=== PATIENT | female | born 1965 | race Caucasian/White ===

== ENCOUNTER 2020-11-19 14:39 | Outpatient (CLI) | payer OTHER, SELFPAY ==
--- NOTE | 2020-11-19 14:58 | ECG_ITS ---
Measurements Intervals Meredith Rate: 62 P: 74 HI: 143 QRS: 78 QRSD: 73 T: 62 QT: 430 QTc: 437 Interpretive Statements SINUS RHYTHM NORMAL ECG Electronically Signed On 11-19-2020 15:59:27 CDT by Oskar Crespo D.O.
== END 2020-11-19 14:40 | disposition home or self-care (01) ==
LOC: ANHCARD 14:44
PROVIDERS: PCP Family Medicine Adolescent Medicine; Visit Provider Physician Assistant
DX: R07.9 Chest pain, unspecified (principal)
CPT/HCPCS: 93005

== ENCOUNTER → 2021-08-17 11:10 | Outpatient (CLI) | payer OTHER, SELFPAY ==
--- NOTE | ~2021-08-17 | MR_ITS ---
EXAMINATION: MR brain/brain stem wo/w con DATE: 08/17/2021 12:27 INDICATION: Migraine with aura, not intractable, without status migrainosus. TECHNIQUE: Magnetic resonance imaging (MRI) of the brain and brainstem was performed without and with 13 mL MultiHance intravenous contrast. Sequences included sagittal and axial T1-weighted FSE, axial diffusion-weighted FS EPI, axial T2*-weighted GRE, axial T2-weighted FLAIR Propeller, and axial T2-we ighted Propeller. Postcontrast sequences included axial and coronal T1-weighted FSE. Apparent diffusi on coefficient (ADC) maps were created. COMPARISON: None. FINDINGS: There is no intracranial hemorrhage, acute infarction, or abnormal intracranial mass lesion . The ventricles are normal in size. The paranasal sinuses are clear. There are likely changes of ocu lar lens replacement surgeries. The mastoid air cells are normal. IMPRESSION: 1. Normal brain. Reviewed, dictated and finalized at location A. IMPRESSION: 1. Normal brain.
--- NOTE | ~2021-08-17 | US_ITS ---
EXAMINATION: US pelvic complete w TV DATE: 08/17/2021 11:49 INDICATION: D25.9 - Leiomyoma of uterus, unspecified TECHNIQUE: Multiple transabdominal and endovaginal sonographic images of the pelvis were obtained. COMPARISON: None. FINDINGS: Uterus: 6.1 x 2.2 x 3.9 cm. Endometrial complex measures 0.6 cm. Multiple fibroids appear to be prese nt in the transabdominal images, ranging in size between 3.2 and 5.3 cm. Only a single myometrial fib roid detected in the transvaginal images, measuring up to 8.6 cm. Is possible that portions of this s alec fibroid appeared separate in the transabdominal views. Right Ovary: Not visualized. No adnexal mass. Left Ovary: Not visualized. No adnexal mass. There is no free fluid in the pelvis. IMPRESSION: 1. 8.6 cm myometrial fibroid. 2. Nonvisualized ovaries. Reviewed, dictated and finalized at location K.
[2021-08-17 12:10] LABS: Estimated Glomerular Filt Rate 58
== END ==
PROVIDERS: PCP Family Medicine Adolescent Medicine; Visit Provider Physician Assistant
DX: G43.109 Migraine with aura, not intractable, without status migrainosus (principal); D25.9 Leiomyoma of uterus, unspecified
CPT/HCPCS: 70553; 76830; 76856; A9577

== ENCOUNTER 2023-02-20 08:26 | Day surgery (SDC) | payer OTHER, SELFPAY ==
[2023-01-24 15:02] VITALS: BMI 30.3
--- NOTE | 2023-02-17 14:43 | PM.HPGS ---
History of Present Illness History of Present Illness Consent: Risks, benefits, and alternatives have been discussed and questions answered. Patient agrees to proceed with procedure. Chief complaint: Neoplasm Screening Narrative: Desiree Grimm is a 57 year old female Referred for colon cancer screening. Colonoscopy was about 10 years ago. Review of Systems Review of Systems: All systems reviewed & are unremarkable except as noted in HPI and below PMFSH Family History Family History Mother Hypertension Father Diabetes mellitus Hypertension Cancer of kidney Ulcerative colitis Multiple myeloma Social History Social History Smoking status: Never smoker Second hand tobacco smoke exposure: No Alcohol intake: current Alcohol use details: Socially Substance use: never Substance use type: does not use Lack of Transportation: No Lack of Food: Never True Current Housing: I Have Housing Concerned About Future Housing: No Difficulty Paying Gas/Electric Bills: No Difficulty Paying for Meds: No Currently Unemployed: No Education: Associate Degree Difficulty w/ Childcare or Family Care: No Living arrangements: with family Occupation/Education: occupation Gender identity (if verbalized by the patient): Female Sexual Orientation (if Verbalized by the Patient): Straight or Heterosexual Spiritual care concerns: No Agree to blood products: Yes Meds Home Medications and Allergies Home Medications Medication Instructions Recorded Confirmed Type topiramate 25 mg tablet 25 mg PO DAILY #90 tabs 12/16/22 02/20/23 Rx amlodipine 5 mg tablet 5 mg PO DAILY 02/01/23 02/20/23 History metoprolol succinate 25 mg 25 mg PO DAILY 02/01/23 02/20/23 History tablet,extended release 24 hr Allergies Allergy/AdvReac Type Severity Reaction Status Date / Time Penicillins AdvReac Unknown unknown Verified 02/20/23 11:16 Exam Resp: Auscultation: clear to auscultation bilaterally Cardio: Rate: regular rate Rhythm: regular rhythm GI: GI Palp: Yes Soft to palpation and No Tenderness to palpation present (GI) Assessment and Plan Assessment and plan (1) Colon cancer screening: Code(s): Z12.11 - Encounter for screening for malignant neoplasm of colon Status: Acute Assessment and Plan: Colonoscopy with possible biopsy or polypectomy or cautery or injection of substances.
[2023-02-20 11:18] VITALS: BP 107/70; PULSE 72; RESP 16; TEMP 37.3; O2SAT 99
[2023-02-20] MEDS: LACTATED RINGERS 1,000 ML 150 ML IV CONT (11:28)
--- NOTE | 2023-02-20 11:46 | P.PNAN_ITS ---
Anes - Initial Pre Proc Eval Procedure: Operation Date: 02/20/23 12:30 Proposed Procedures p Screening Colonoscopy - Yg Lam MD Date/Time: 02/20/23 11:46 Surgeon: Yg Lam MD Pre Op Diagnosis: Neoplasm Screening Patient Data Age: 57 Gender: F Height: 1.57 m Weight: 77.4 kg Last Vital Signs Temp 37.3 C 02/20/23 11:18 Pulse 72 02/20/23 11:18 Resp 16 02/20/23 11:18 BP 107/70 02/20/23 11:18 Pulse Ox 99 02/20/23 11:18 O2 Del Method Room Air 02/20/23 11:18 Allergies Allergy/AdvReac Type Severity Reaction Status Date / Time Penicillins AdvReac Unknown unknown Verified 02/20/23 11:16 Home Medications Medication Instructions Recorded Confirmed Type topiramate 25 mg tablet 25 mg PO DAILY #90 tabs 12/16/22 02/20/23 Rx amlodipine 5 mg tablet 5 mg PO DAILY 02/01/23 02/20/23 History metoprolol succinate 25 mg 25 mg PO DAILY 02/01/23 02/20/23 History tablet,extended release 24 hr Patient hx anesthesia problems: none Family hx anesthesia problems: none Results Review: All pre-operative results and documents have been reviewed as part of the pre- operative evaluation. [facility] Family History Family History Mother Hypertension Father Diabetes mellitus Hypertension Cancer of kidney Ulcerative colitis Multiple myeloma Social History Social History Smoking status: Never smoker Second hand tobacco smoke exposure: No Alcohol intake: current Alcohol use details: Socially Substance use: never Substance use type: does not use Lack of Transportation: No Lack of Food: Never True Current Housing: I Have Housing Concerned About Future Housing: No Difficulty Paying Gas/Electric Bills: No Difficulty Paying for Meds: No Currently Unemployed: No Education: Associate Degree Difficulty w/ Childcare or Family Care: No Living arrangements: with family Occupation/Education: occupation Gender identity (if verbalized by the patient): Female Sexual Orientation (if Verbalized by the Patient): Straight or Heterosexual Spiritual care concerns: No Agree to blood products: Yes Anes - Eval Final PreProcedure Day of Procedure 02/20/23 11:46 Patient weight: obese Heart: regular rate and rhythm Lungs: clear to auscultation Airway: Mallampati scale class III Neurological: alert and oriented Last oral intake: >/= 8 hours ASA classification: III Emergent: no Anesthetic plan: proceed Anesthesia type and monitoring: general GIVS and standard monitoring Results Review: All pre-operative results and documents have been reviewed as part of the pre- operative evaluation. Informed Consent: The patient's anesthetic plan and its attendant risks and benefits were discussed with the patient/family/POA. Questions were solicited and answers provided to the satisfaction of the patient/family/POA.
[2023-02-20 12:35] VITALS: BP 102/61; PULSE 71; RESP 16; O2SAT 99
--- NOTE | 2023-02-20 12:41 | WPDANESPN ---
Anes - Prog Note Post-Op Date/Time: 02/20/23 12:41 Cardiovascular status: normal Respiratory status: normal Airway patency: baseline Mental status: baseline Post-Op hydration status: normal Vital Signs: Last Vital Signs Temp 37.3 C 02/20/23 11:18 Pulse 71 02/20/23 12:35 Resp 16 02/20/23 12:35 BP 102/61 02/20/23 12:35 Pulse Ox 99 02/20/23 12:35 O2 Del Method Room Air 02/20/23 12:35 Pain Score (VAS): 0 I/O: Intake & Output 02/19/23 02/20/23 02/20/23 23:59 07:59 15:59 Intake Total 800 Balance 800 Patient Feedback: Patient satisfied with anesthetic care.
[2023-02-20 12:45] VITALS: BP 102/80; PULSE 59; RESP 18; O2SAT 99
[2023-02-20 12:55] VITALS: BP 109/67; PULSE 59; RESP 18; O2SAT 100
== END 2023-02-20 13:15 | disposition home or self-care (01) ==
PROVIDERS: PCP Family Medicine Adolescent Medicine; Visit Provider Internal Medicine Gastroenterology
PROC: 0DJD8ZZ Inspection of Lower Intestinal Tract, Via Natural or Artificial Opening Endoscopic (ICD-10-PCS; CPT 45378; principal; 2023-02-20 12:30)
DX: Z12.11 Encounter for screening for malignant neoplasm of colon (principal); K57.30 Diverticulosis of large intestine without perforation or abscess without bleeding
CPT/HCPCS: 45378